=== PATIENT | female | born 1975 | race Caucasian/White ===

== ENCOUNTER 2019-06-12 16:09 | Emergency (ER) | payer MEDICAID ==
[~2019-06-12] VITALS: Ht 154.9 cm; Wt 70.0 kg
[~2019-06-12 16:09] MED LIST: AMOXICILLIN500 MG PO; BACTRIM DS1 TAB PO; CIPRO500 MG OR; CIPRO500 MG PO; CIPROFLOXACN500 MG PO; DIFLUCAN150 MG PO; FLOMAX0.4 M1 OR; LORTAB 5 OR; LORTAB5 PO; NAPROSYN500 MG OR; NO MEDS; NORCO1 TA1 PO; PERCOCET 5/325M1 TAB OR; PERCOCET 5/325M1 TAB PO; PERCOCET1 TA4 PO; PYRIDIUM200 MG PO; TORADOL PO; ULTRAM50 M1 PO; ZOFRAN ODT8 MG SL
[2019-06-12] MEDS ORDERED: MEDDOSEPAK PO (18:18)
[2019-06-12] MEDS ORDERED: TORADOL PO (18:18)
[2019-06-12 18:25] VITALS: BP 117/79
== END 2019-06-12 18:25 | disposition home or self-care (01) ==
LOC: ED 16:09
DX: M25.562 Pain in left knee (principal); M25.462 Effusion, left knee

== ENCOUNTER 2019-08-12 15:53 | Emergency (ER) | payer MEDICAID ==
[~2019-08-12] VITALS: Ht 154.9 cm; Wt 68.0 kg
[~2019-08-12 15:53] MED LIST changes: +MEDDOSEPAK PO
[2019-08-12 17:33] LABS: HEMOGLOBIN 14.4 g/dl (12.0-16.0); IMMATURE GRANULOCYTES 0.7 % (0.0-5.0); MEAN CELL VOLUME 94.4 fL CALC (80.0-100.0); MEAN CORPUSCULAR HGB 30.9 pG CALC (26.0-32.0); MEAN CORPUSCULAR HGB CONC 32.7 g/L CALC (32.0-36.0); NEUT# 9.49 thou/uL (2.00-7.15); RED BLOOD COUNT 4.66 mill/uL (4.20-5.60); RED CELL DISTRI WIDTH 13.1 % (11.5-15.5)
[2019-08-12 17:49] LABS: ALBUMIN 4.7 g/dL (3.2-5.0); ALKALINE PHOSPHATASE 102 u/l (38-126); ANION GAP 14 (6-22 (CALC)); BILIRUBIN, TOTAL 0.6 mg/dL (0.0-1.4); BUN 12 mg/dL (7-17); BUN/CREATININE RATIO 16 (12-20 (CALC)); CARBON DIOXIDE 24 mmol/l (22-30); CHLORIDE 104 mmol/l (95-108); CREATININE 0.7 mg/dL (0.5-1.0); GFR > 60 ML/MIN (>=60 (CALC)); GFR FOR AFR.AMER. > 60 ML/MIN (>=60 (CALC)); POTASSIUM 4.1 mmol/l (3.5-5.1); SGOT/AST 45 u/l (14-36); SODIUM 139 mmol/l (137-146)
[2019-08-12] MEDS ORDERED: OFLOXACIN0.3 % OD (19:51)
[2019-08-12] MEDS ORDERED: OMNICEF300 M1 PO (19:51)
[2019-08-12] MEDS ORDERED: BACTRIM DS1 TAB PO (19:51)
[2019-08-12 21:00] VITALS: BP 110/64
== END 2019-08-12 21:00 | disposition left against medical advice (07) ==
LOC: ED 15:53
DX: H05.011 Cellulitis of right orbit (principal); S05.01XA Injury of conjunctiva and corneal abrasion without foreign body, right eye, initial encounter; H16.001 Unspecified corneal ulcer, right eye; F17.210 Nicotine dependence, cigarettes, uncomplicated; W22.8XXA Striking against or struck by other objects, initial encounter; Z91.19 Patient's noncompliance with other medical treatment and regimen

== ENCOUNTER 2021-01-11 17:52 | Emergency (ER) | payer MEDICAID ==
[~2021-01-11] VITALS: Ht 154.9 cm; Wt 70.0 kg
[~2021-01-11 17:52] MED LIST changes: +OFLOXACIN0.3 % OD; +OMNICEF300 M1 PO
[2021-01-11] MEDS ORDERED: KEFLEX500 M1 PO (19:42)
[2021-01-11] MEDS ORDERED: PERCOCET 5/325M1 TAB PO (19:42)
[2021-01-11 20:15] VITALS: BP 128/86
== END 2021-01-11 20:15 | disposition home or self-care (01) ==
LOC: ED 17:52
DX: S62.613A Displaced fracture of proximal phalanx of left middle finger, initial encounter for closed fracture (principal); S61.412A Laceration without foreign body of left hand, initial encounter; F17.200 Nicotine dependence, unspecified, uncomplicated; W20.8XXA Other cause of strike by thrown, projected or falling object, initial encounter; Y93.89 Activity, other specified

== ENCOUNTER 2021-06-19 05:04 | Emergency (ER) | payer MEDICAID ==
[~2021-06-19] VITALS: Ht 154.9 cm; Wt 63.0 kg
[~2021-06-19 05:04] MED LIST changes: +KEFLEX500 M1 PO
[2021-06-19 06:09] LABS: IMMATURE GRANULOCYTES 0.3 % (0.0-5.0); MEAN CELL VOLUME 95.4 fL CALC (80.0-100.0); MEAN CORPUSCULAR HGB 31.2 pG CALC (26.0-32.0); MEAN CORPUSCULAR HGB CONC 32.7 g/dL CAL (32.0-36.0); NEUT# 7.41 thou/uL (2.00-7.15); RED BLOOD COUNT 3.94 mill/uL (4.20-5.60); RED CELL DISTRI WIDTH 12.9 % (11.5-15.5)
[2021-06-19 06:27] LABS: HEMATOCRIT 37.6 % (37.0-47.0); HEMOGLOBIN 12.3 g/dl (12.0-16.0)
[2021-06-19 06:31] LABS: ALKALINE PHOSPHATASE 74 u/l (38-126); ANION GAP 12 (6-22 (CALC)); BUN 14 mg/dL (7-17); BUN/CREATININE RATIO 23 (12-20 (CALC)); CARBON DIOXIDE 24 mmol/l (22-30); CHLORIDE 105 mmol/l (95-108); CREATININE 0.6 mg/dL (0.5-1.0); ETHYL ALCOHOL 0 mg/dl (0-30); GFR > 60 ML/MIN (>=60 (CALC)); GFR FOR AFR.AMER. > 60 ML/MIN (>=60 (CALC)); POTASSIUM 3.5 mmol/l (3.5-5.1); SGOT/AST 46 u/l (14-36); SODIUM 138 mmol/l (137-146); TOTAL PROTEIN 7.1 g/dL (6.3-8.2)
[2021-06-19 06:34] LABS: BILIRUBIN, TOTAL 0.3 mg/dL (0.0-1.4)
[2021-06-19 07:30] LABS: URINE BILIRUBIN - DIPSTICK NEGATIVE (NEGATIVE); URINE BLOOD DIPSTICK NEGATIVE (NEGATIVE); URINE COLOR YELLOW; URINE GLUCOSE - DIPSTICK NEGATIVE (NEGATIVE); URINE KETONE NEGATIVE (NEGATIVE); URINE LEUK ESTERASE NEGATIVE (NEGATIVE); URINE PROTEIN - DIPSTICK NEGATIVE (NEG-TRACE); URINE UROBILINOGEN - DIPSTICK 0.2 E.U./dL (0.2)
[2021-06-19 07:36] LABS: URINE NITRITE - DIPSTICK NEGATIVE (Negative)
[2021-06-19 08:06] VITALS: BP 141/78
== END 2021-06-19 08:17 | disposition home or self-care (01) ==
LOC: ED 05:04
PROVIDERS: Emergency Medicine
DX: R07.9 Chest pain, unspecified (principal); F17.210 Nicotine dependence, cigarettes, uncomplicated

== ENCOUNTER 2021-08-12 10:12 | Emergency (ER) | payer MEDICAID ==
[~2021-08-12] VITALS: Ht 154.9 cm; Wt 64.0 kg
[2021-08-12 10:36] LABS: URINE BILIRUBIN - DIPSTICK NEGATIVE (NEGATIVE); URINE BLOOD DIPSTICK LARGE (NEGATIVE); URINE GLUCOSE - DIPSTICK NEGATIVE (NEGATIVE); URINE KETONE NEGATIVE (NEGATIVE); URINE LEUK ESTERASE TRACE (NEGATIVE); URINE PH 6.5 (4.5-8.0); URINE PROTEIN - DIPSTICK NEGATIVE (NEG-TRACE); URINE SPECIFIC GRAVITY <=1.005; URINE UROBILINOGEN - DIPSTICK 0.2 E.U./dL (0.2)
[2021-08-12 10:38] LABS: URINE NITRITE - DIPSTICK NEGATIVE (Negative)
[2021-08-12 10:39] LABS: URINE COLOR STRAW; URINE WBC 0-2 WBC/hpf (0-5)
[2021-08-12 11:28] LABS: HEMATOCRIT 38.3 % (37.0-47.0); HEMOGLOBIN 12.5 g/dl (12.0-16.0); IMMATURE GRANULOCYTES 0.3 % (0.0-5.0); MEAN CELL VOLUME 94.3 fL CALC (80.0-100.0); MEAN CORPUSCULAR HGB 30.8 pG CALC (26.0-32.0); MEAN CORPUSCULAR HGB CONC 32.6 g/dL CAL (32.0-36.0); NEUT# 6.46 thou/uL (2.00-7.15); RED BLOOD COUNT 4.06 mill/uL (4.20-5.60)
[2021-08-12 11:30] LABS: ALBUMIN 4.2 g/dL (3.2-5.0); ALKALINE PHOSPHATASE 82 u/l (38-126); ANION GAP 9 (6-22 (CALC)); BILIRUBIN, TOTAL 0.5 mg/dL (0.0-1.4); BUN 14 mg/dL (7-17); BUN/CREATININE RATIO 21 (12-20 (CALC)); CARBON DIOXIDE 30 mmol/l (22-30); CHLORIDE 102 mmol/l (95-108); CREATININE 0.7 mg/dL (0.5-1.0); GFR > 60 ML/MIN (>=60 (CALC)); GFR FOR AFR.AMER. > 60 ML/MIN (>=60 (CALC)); LIPASE 55 u/l (23-300); POTASSIUM 4.1 mmol/l (3.5-5.1); SGOT/AST 31 u/l (14-36); SODIUM 137 mmol/l (137-146); TOTAL PROTEIN 7.6 g/dL (6.3-8.2)
[2021-08-12] MEDS ORDERED: HYDROCO/APAP1 TA9 PO (11:49)
[2021-08-12] MEDS ORDERED: TAMSULOSIN0.4 MG PO (11:49)
[2021-08-12 11:58] VITALS: BP 186/84
== END 2021-08-12 12:30 | disposition home or self-care (01) ==
LOC: ED 10:12
PROVIDERS: Family Medicine
DX: N20.1 Calculus of ureter (principal); F17.210 Nicotine dependence, cigarettes, uncomplicated; Z87.442 Personal history of urinary calculi

== ENCOUNTER 2022-10-09 18:56 | Emergency (ER) | payer MEDICAID ==
[~2022-10-09] VITALS: Ht 154.9 cm; Wt 61.0 kg
[2022-10-09] VITALS (13 sets, daily range): BP systolic 129–154; BP diastolic 72–88
[~2022-10-09 18:56] MED LIST changes: +HYDROCO/APAP1 TA9 PO; +TAMSULOSIN0.4 MG PO
[2022-10-09] MEDS ORDERED: CYCLOBENZAPRINE10 MG PO (21:50)
[2022-10-09] MEDS ORDERED: NAPROXEN500 MG PO (21:50)
== END 2022-10-09 22:49 | disposition home or self-care (01) ==
LOC: ED 18:56
DX: M47.22 Other spondylosis with radiculopathy, cervical region (principal); F17.200 Nicotine dependence, unspecified, uncomplicated

== ENCOUNTER 2025-01-22 01:51 | Emergency (ER) | payer SELFPAY ==
[~2025-01-22] VITALS: Ht 154.9 cm; Wt 68.0 kg
[~2025-01-22 01:51] MED LIST changes: +CYCLOBENZAPRINE10 MG PO; +NAPROXEN500 MG PO
[2025-01-22] MEDS ORDERED: IBUPROFEN 600 MG/TAB PO ONE (02:15)
[2025-01-22] MEDS ORDERED: PROMETHAZINE HCL 25 MG/TAB PO ONE (02:15)
[2025-01-22] MEDS ORDERED: BUTALBITAL-APAP-CAFFEINE 50-325-40 TAB PO ONE (02:15)
[2025-01-22 03:01] LABS: URINE BILIRUBIN - DIPSTICK Negative (NEGATIVE); URINE BLOOD DIPSTICK Negative (NEGATIVE); URINE CLARITY Clear; URINE GLUCOSE - DIPSTICK Negative (NEGATIVE); URINE KETONE Negative (NEGATIVE); URINE LEUK ESTERASE Small (Negative); URINE NITRITE - DIPSTICK Negative (Negative); URINE PH 6.5 (4.5-8.0); URINE PROTEIN - DIPSTICK Trace mg/dL (NEG-TRACE); URINE UROBILINOGEN - DIPSTICK 0.2 E.U./dL (0.2)
[2025-01-22 03:13] LABS: URINE COLOR Yellow
[2025-01-22 03:19] LABS: URINE SQUAMOUS EPITHELIAL CELL MODERATE EPI/hpf (0-FEW)
[2025-01-22] MEDS ORDERED: ZOFRAN4 MG/TAB PO (03:45)
[2025-01-22 04:00] VITALS: BP 128/79
== END 2025-01-22 04:00 | disposition home or self-care (01) | DRG 866 ==
LOC: ED 01:51
PROVIDERS: Emergency Medicine
DX: B34.9 Viral infection, unspecified (principal); F17.200 Nicotine dependence, unspecified, uncomplicated; Z20.822 Contact with and (suspected) exposure to COVID-19